=== PATIENT | female | born 1950 | race Caucasian/White ===

== ENCOUNTER → 2019-01-07 | Outpatient (CLI) | payer MEDICARE, OTHER | END | disposition home or self-care (01) | LOC: CFH 10:33 | PROVIDERS: ATTEND Family Medicine | DX: M81.0 Age-related osteoporosis without current pathological fracture (principal) | CPT/HCPCS: 77080 ==

== ENCOUNTER → 2019-02-24 | Outpatient (CLI) | payer MEDICARE, OTHER | END | disposition home or self-care (01) | LOC: CFH 07:29 | PROVIDERS: ATTEND Nurse Practitioner | DX: Z12.31 Encounter for screening mammogram for malignant neoplasm of breast (principal) | CPT/HCPCS: 77063; 77067 ==

== ENCOUNTER 2019-02-25 10:16 | Outpatient (CLI) | payer MEDICARE, OTHER | END 2019-02-25 23:59 | disposition home or self-care (01) | LOC: CFH 10:16 | PROVIDERS: ATTEND Nurse Practitioner | DX: R92.0 Mammographic microcalcification found on diagnostic imaging of breast (principal) | CPT/HCPCS: 77065 ==

== ENCOUNTER → 2019-03-03 | Outpatient (CLI) | payer MEDICARE, OTHER ==
[~2019-03-03] MED LIST: LIDOCAINE 1%, 20ML ONE; LIDOCAINE 1%-EPI 1:100K, 20ML ONE; SODIUM BICARBONATE 4.2%, 5ML ONE
== END | disposition home or self-care (01) ==
LOC: CFH 09:57
PROVIDERS: ATTEND Nurse Practitioner
DX: D05.11 Intraductal carcinoma in situ of right breast (principal)
CPT/HCPCS: 19081; 77065; 88305; J3490

== ENCOUNTER 2019-05-04 11:19 | Day surgery (SDC) | payer MEDICARE, OTHER ==
[~2019-05-04] VITALS: Ht 170.2 cm; Wt 72.7 kg
[~2019-05-04 11:19] MED LIST changes: +ALBU8.5H8 INH; +ALEN70TA6 PO; -LIDOCAINE 1%, 20ML ONE; -LIDOCAINE 1%-EPI 1:100K, 20ML ONE; +ROSU5TAB PO; -SODIUM BICARBONATE 4.2%, 5ML ONE
[2019-05-04] MEDS ORDERED: LACTATED RINGERS 1,000 ML IV SCH ×2 (13:08→19:00)
[2019-05-04 13:25] VITALS: BP 156/95
[2019-05-04] MEDS ORDERED: ACETAMINOPHEN 500 MG TABLET PO ONE (13:30)
[2019-05-04] MEDS ORDERED: GABAPENTIN 300 MG CAPSULE PO ONE (13:30)
[2019-05-04] MEDS ORDERED: ONDANSETRON ODT 8 MG PO ONE (13:30)
[2019-05-04] MEDS ORDERED: SCOPOLAMINE PATCH, 1.5MG PATCH.TD72 TD ONE (13:30)
[2019-05-04] MEDS ORDERED: SODIUM BICARBONATE 4.0%, 5ML ONE (13:53)
[2019-05-04] MEDS ORDERED: LIDOCAINE 1%, 20ML ONE (13:53)
[2019-05-04] MEDS ORDERED: BUPIVACAINE/PF-EPI 0.5% 1:200K ONE (13:58)
[2019-05-04] MEDS ORDERED: FENTANYL PF 250 MCG/5ML ONE (14:46)
[2019-05-04] MEDS ORDERED: MIDAZOLAM 1 MG/ML, 2ML ONE (14:46)
[2019-05-04] MEDS ORDERED: SUGAMMADEX 200 MG/2 ML IVPush ONE (15:00)
[2019-05-04] MEDS ORDERED: DEXMEDETOMIDINE 200 MCG/2 ML ONE (15:00)
[2019-05-04] MEDS ORDERED: PHENYLEPHRINE 10 MG/ML ONE (15:00)
[2019-05-04] MEDS ORDERED: EPHEDRINE 50 MG/ML, 1ML ONE (15:00)
[2019-05-04] MEDS ORDERED: ALBUTEROL SULFATE 2.5 MG/3 ML NPPB PRN (15:30)
[2019-05-04] MEDS ORDERED: hydrALAzine 20 MG/ML, 1ML IV PRN (15:30)
[2019-05-04] MEDS ORDERED: FENTANYL PF 100 MCG/2ML IV PRN (15:30)
[2019-05-04] MEDS ORDERED: PROMETHAZINE 25 MG/ML, 1ML IV PRN (15:30)
[2019-05-04] MEDS ORDERED: OXYcodone 5 MG/5 ML ORAL.SOL UDC PO PRN (15:30)
[2019-05-04] MEDS ORDERED: HALOPERIDOL 5 MG/ML IV PRN (15:30)
[2019-05-04] MEDS ORDERED: MEPERIDINE/PF 25MG/0.5ML IVPush PRN (15:30)
[2019-05-04] MEDS ORDERED: HYDROmorphone 2 MG/ML, 1ML IVPush PRN (15:30)
[2019-05-04] MEDS ORDERED: PROPOFOL 10 MG/ML, 20ML ONE (16:20)
[2019-05-04] MEDS ORDERED: CEFAZOLIN 1,000 MG ONE (16:20)
[2019-05-04] MEDS ORDERED: LIDOCAINE-MPF 2% ,5ML ONE (16:20)
[2019-05-04] MEDS ORDERED: ROCURONIUM 10MG/ML,5ML ONE (16:20)
[2019-05-04] MEDS ORDERED: WATER-INJECTION,STERILE 10 ML IV ONE (16:20)
[2019-05-04] MEDS ORDERED: ONDANSETRON 2MG/ML, 2ML ONE (16:20)
[2019-05-04] MEDS ORDERED: DEXAMETHASONE 4 MG/ML, 1ML ONE (16:20)
[2019-05-04] MEDS ORDERED: OXYcodone 5 MG/5 ML ORAL.SOL UDC ONE (16:59)
[2019-05-04] MEDS ORDERED: MORPHINE SULFATE 4 MG/ML, 1ML IVPush PRN (19:00)
[2019-05-04] MEDS ORDERED: ONDANSETRON 2MG/ML, 2ML IVPush PRN (19:00)
== END 2019-05-04 19:10 | disposition home or self-care (01) ==
LOC: SDC 11:19 → EDSTATUS 15:00 → 4NOR 17:47 → OUT 19:10
PROVIDERS: ATTEND Surgery
DX: D05.11 Intraductal carcinoma in situ of right breast (principal); N65.1 Disproportion of reconstructed breast; J45.909 Unspecified asthma, uncomplicated; Z17.1 Estrogen receptor negative status [ER-]; Z72.89 Other problems related to lifestyle; Z79.899 Other long term (current) drug therapy; Z88.8 Allergy status to other drugs, medicaments and biological substances; Z83.3 Family history of diabetes mellitus
CPT/HCPCS: 19281; 19301; 19318; 19380; 76098; 88305; 88307; 88329; 88360; C1729; J0690; J1100; J2250; J2370; J2405; J2704; J3010; J7120; Q0162; G0378

== ENCOUNTER 2019-08-04 09:40 | Outpatient (CLI) | payer MEDICARE, OTHER | END 2019-08-04 23:59 | disposition home or self-care (01) | LOC: ROC 09:40 | PROVIDERS: ATTEND Radiology Radiation Oncology | DX: D05.11 Intraductal carcinoma in situ of right breast (principal) | CPT/HCPCS: G0463 ==

== ENCOUNTER 2020-03-15 08:00 | Outpatient (CLI) | payer MEDICARE, OTHER | END 2020-03-15 23:59 | disposition home or self-care (01) | LOC: ROC 08:00 | PROVIDERS: ATTEND Radiology Radiation Oncology | DX: Z08 Encounter for follow-up examination after completed treatment for malignant neoplasm (principal); Z85.3 Personal history of malignant neoplasm of breast | CPT/HCPCS: G0463 ==

== ENCOUNTER → 2020-09-21 | Outpatient (CLI) | payer MEDICARE, OTHER ==
[~2020-09-21] MED LIST changes: -ALEN70TA6 PO; +ALEN70TA66 PO
== END | disposition home or self-care (01) ==
LOC: ROC 07:32
PROVIDERS: ATTEND Radiology Radiation Oncology
DX: Z08 Encounter for follow-up examination after completed treatment for malignant neoplasm (principal); Z85.3 Personal history of malignant neoplasm of breast
CPT/HCPCS: G0463

== ENCOUNTER → 2020-11-16 | Outpatient (CLI) | payer MEDICARE, OTHER ==
[~2020-11-16] MED LIST changes: -ALEN70TA66 PO; +ALEN70TA77 PO
== END | disposition home or self-care (01) ==
LOC: CFH 12:12
PROVIDERS: ATTEND Radiology Radiation Oncology
DX: N64.4 Mastodynia (principal); D05.11 Intraductal carcinoma in situ of right breast
CPT/HCPCS: 76642; 77061; 77065; G0279

== ENCOUNTER → 2021-03-26 | Outpatient (CLI) | payer MEDICARE, OTHER | END | disposition home or self-care (01) | LOC: CFH 09:08 | PROVIDERS: ATTEND Radiology Radiation Oncology | DX: D05.11 Intraductal carcinoma in situ of right breast (principal); R07.81 Pleurodynia | CPT/HCPCS: 71045; 71111; 71120 ==

== ENCOUNTER → 2021-03-26 | Outpatient (CLI) | payer MEDICARE, OTHER | END | disposition home or self-care (01) | LOC: ROC 07:17 | PROVIDERS: ATTEND Radiology Radiation Oncology | DX: D05.11 Intraductal carcinoma in situ of right breast (principal) | CPT/HCPCS: G0463 ==

== ENCOUNTER → 2021-04-18 | Outpatient (CLI) | payer MEDICARE, OTHER | END | disposition home or self-care (01) | LOC: CFH 10:05 | PROVIDERS: ATTEND Nurse Practitioner | DX: Z13.820 Encounter for screening for osteoporosis (principal); N95.8 Other specified menopausal and perimenopausal disorders; M81.0 Age-related osteoporosis without current pathological fracture | CPT/HCPCS: 77080 ==

== ENCOUNTER 2021-06-29 07:23 | Outpatient (CLI) | payer MEDICARE, OTHER | END 2021-06-29 23:59 | disposition home or self-care (01) | LOC: ROC 07:23 | PROVIDERS: ATTEND Radiology Radiation Oncology | DX: Z08 Encounter for follow-up examination after completed treatment for malignant neoplasm (principal); D05.11 Intraductal carcinoma in situ of right breast | CPT/HCPCS: G0463 ==